=== PATIENT | female | born 1960 | race Caucasian/White ===

== ENCOUNTER 2020-12-25 00:45 | Inpatient (IN) | payer OTHER ==
[~2020-12-25] VITALS: Ht 149.9 cm; Wt 95.3 kg
[~2020-12-25 00:45] MED LIST: BACTROBAN OINT22 GM TOP; CLEOCIN HCL150 MG PO; NORCO 5-325 TA1 EACH PO
[2020-12-25 02:07] LABS: HEMOGLOBIN 12.6 gm/dl (12.3-15.3); RED BLOOD COUNT 4.45 M/UL (4.00-5.10); WHITE BLOOD COUNT 8.5 K/UL (4.5-11.0)
[2020-12-25 02:31] LABS: BUN/CREATININE RATIO 35 (0-10)
[2020-12-25] MEDS ORDERED: LEVOTHYROXINE88 MC1 PO (10:06)
[2020-12-25] MEDS ORDERED: ELAVIL 50 MG TA50 MG PO (10:07)
[2020-12-25] MEDS ORDERED: XYZAL5 MG PO (10:07)
[2020-12-25] MEDS ORDERED: MELATONIN10 M2 PO (10:07)
[2020-12-25] MEDS ORDERED: MOBIC15 MG PO (10:08)
[2020-12-25] MEDS ORDERED: PLAVIX75 MG PO (10:09)
[2020-12-25] MEDS ORDERED: LAMICTAL100 MG PO (10:09)
[2020-12-25] MEDS ORDERED: CLONAZEPAM1 MG PO (10:10)
[2020-12-25] MEDS ORDERED: LEXAPRO10 MG PO (10:11)
[2020-12-25] MEDS ORDERED: LIPITOR TAB 2020 MG PO (10:11)
[2020-12-25] MEDS ORDERED: NEURONTIN300 MG PO (10:12)
[2020-12-25] MEDS ORDERED: QUETIAPINE FUM400 MG PO (10:12)
[2020-12-25] MEDS ORDERED: MINIPRESS5 MG PO (10:13)
[2020-12-25] MEDS ORDERED: MECLIZINE HCL25 MG PO (10:13)
[2020-12-25] MEDS ORDERED: CAPLYTA42 MG PO (10:14)
[2020-12-25] MEDS ORDERED: HYDROXYZINE HCL50 MG PO (10:15)
[2020-12-25] MEDS ORDERED: JANUVIA100 MG PO (10:15)
[2020-12-25] MEDS ORDERED: JARDIANCE25 MG PO (10:16)
[2020-12-25] MEDS ORDERED: OMEPRAZOLE40 MG PO (10:16)
[2020-12-25] MEDS ORDERED: TOPAMAX100 MG PO (10:17)
[2020-12-25] MEDS ORDERED: MYSOLINE250 MG PO (10:18)
[2020-12-25] MEDS ORDERED: CARBIDOPA-LEVO1 EAC2 PO (10:19)
[2020-12-25] MEDS ORDERED: ZANAFLEX4 MG PO (10:23)
[2020-12-25] MEDS ORDERED: PROAIR HFA8.5 GM INH (10:42)
[2020-12-25] MEDS ORDERED: NOVOLOG FL100 UNIT/1 SQ (10:42)
[2020-12-25] MEDS ORDERED: BACTROBAN OINT22 GM TOP (10:44)
[2020-12-25] MEDS ORDERED: MYCOSTATIN100000 UTS PO (10:45)
[2020-12-25] MEDS ORDERED: HYDROCODON-ACE1 EAC6 PO (10:45)
[2020-12-25] MEDS ORDERED: MYCOSTATIN POWD15 GM TOP (10:46)
[2020-12-25] MEDS ORDERED: LEVEMIR FL100 UNIT/1 SQ (10:46)
[2020-12-25] MEDS ORDERED: IPRAT-ALBUT 0.5-3 ML INH (10:47)
[2020-12-26 03:02] LABS: HEMOGLOBIN 12.2 gm/dl (12.3-15.3); RED BLOOD COUNT 4.41 M/UL (4.00-5.10); WHITE BLOOD COUNT 10.4 K/UL (4.5-11.0)
[2020-12-27 05:15] LABS: HEMOGLOBIN 12.8 gm/dl (12.3-15.3); RED BLOOD COUNT 4.48 M/UL (4.00-5.10)
[2020-12-27 05:16] LABS: WHITE BLOOD COUNT 7.7 K/UL (4.5-11.0)
[2020-12-27] MEDS ORDERED: LEVEMIR FL100 UNIT/1 SQ (10:01)
[2020-12-27] MEDS ORDERED: NOVOLOG FL100 UNIT/1 SQ (10:01)
[2020-12-27] MEDS ORDERED: DOXYCYCLINE HY100 M2 PO (10:05)
== END 2020-12-27 13:00 | disposition home health service (06) | DRG 917 ==
LOC: ER1 00:45 → CDU 02:51 → PROG CARE 20:09
PROVIDERS: Family Medicine; Internal Medicine; ADMIT Internal Medicine
DX: T38.3X1A Poisoning by insulin and oral hypoglycemic [antidiabetic] drugs, accidental (unintentional), initial encounter (principal); G93.41 Metabolic encephalopathy; J12.9 Viral pneumonia, unspecified; E11.649 Type 2 diabetes mellitus with hypoglycemia without coma; G20 Parkinson's disease; Z86.73 Personal history of transient ischemic attack (TIA), and cerebral infarction without residual deficits; E87.6 Hypokalemia; Z20.822 Contact with and (suspected) exposure to COVID-19; Z79.899 Other long term (current) drug therapy; Z79.4 Long term (current) use of insulin; E66.01 Morbid (severe) obesity due to excess calories; Z89.422 Acquired absence of other left toe(s); I25.10 Atherosclerotic heart disease of native coronary artery without angina pectoris; G89.29 Other chronic pain; R50.9 Fever, unspecified
CPT/HCPCS: 36415; 36600; 70450; 71045; 73080; 73100; 80048; 80053; 80202; 80307; 81001; 82140; 82550; 82553; 82803; 82962; 83036; 83605; 83690; 83735; 84439; 84443; 84484; 85025; 96374; 97162; 97166; 99285; G0480; J1644; J2310; J3370; J7070; U0002

== ENCOUNTER 2021-09-25 00:10 | Emergency (ER) | payer OTHER ==
[~2021-09-25 00:10] MED LIST changes: +CAPLYTA42 MG PO; +CARBIDOPA-LEVO1 EAC2 PO; +CLONAZEPAM1 MG PO; +DOXYCYCLINE HY100 M2 PO; +ELAVIL 50 MG TA50 MG PO; +HYDROCODON-ACE1 EAC6 PO; +HYDROXYZINE HCL50 MG PO; +IPRAT-ALBUT 0.5-3 ML INH; +JANUVIA100 MG PO; +JARDIANCE25 MG PO; +LAMICTAL100 MG PO; +LEVEMIR FL100 UNIT/1 SQ; +LEVOTHYROXINE88 MC1 PO; +LEXAPRO10 MG PO; +LIPITOR TAB 2020 MG PO; +MECLIZINE HCL25 MG PO; +MELATONIN10 M2 PO; +MINIPRESS5 MG PO; +MOBIC15 MG PO; +MYCOSTATIN POWD15 GM TOP; +MYCOSTATIN100000 UTS PO; +MYSOLINE250 MG PO; +NEURONTIN300 MG PO; +NOVOLOG FL100 UNIT/1 SQ; +OMEPRAZOLE40 MG PO; +PLAVIX75 MG PO; +PROAIR HFA8.5 GM INH; +QUETIAPINE FUM400 MG PO; +TOPAMAX100 MG PO; +XYZAL5 MG PO; +ZANAFLEX4 MG PO
[2021-09-25 00:56] LABS: HEMOGLOBIN 12.8 gm/dl (12.3-15.3); RED BLOOD COUNT 4.26 M/UL (4.00-5.10); WHITE BLOOD COUNT 8.2 K/UL (4.5-11.0)
[2021-09-25 01:17] LABS: BUN/CREATININE RATIO 33 (0-10)
== END 2021-09-25 06:34 | disposition home or self-care (01) ==
LOC: ER1 00:10
PROVIDERS: Family Medicine; Physician Assistant Medical
DX: G20 Parkinson's disease (principal); E11.65 Type 2 diabetes mellitus with hyperglycemia; E11.40 Type 2 diabetes mellitus with diabetic neuropathy, unspecified; R29.898 Other symptoms and signs involving the musculoskeletal system; Z86.73 Personal history of transient ischemic attack (TIA), and cerebral infarction without residual deficits; Z99.81 Dependence on supplemental oxygen; Z99.3 Dependence on wheelchair; Z88.2 Allergy status to sulfonamides; Z79.82 Long term (current) use of aspirin; Z79.02 Long term (current) use of antithrombotics/antiplatelets
CPT/HCPCS: 36600; 70450; 71045; 80053; 80307; 81001; 82550; 82553; 82803; 84484; 85025; 93005; 99285